=== PATIENT | male | born 1980 | race Caucasian/White ===

== ENCOUNTER 2017-11-16 06:17 | Day surgery (SDC) | payer OTHER ==
[~2017-11-16] VITALS: Ht 182.9 cm; Wt 103.2 kg
[~2017-11-16 06:17] MED LIST: SODIUM CHLORIDE 0.9% 1,000 ML IV ONE
[2017-11-16] MEDS ORDERED: LIDOCAINE HCL 2% 30 ML JELLY TP ONE (06:18)
[2017-11-16] MEDS ORDERED: BENZOCAINE 20% 50 MCG/SPRAY 57 GM TP ONE (06:18)
[2017-11-16] MEDS ORDERED: MIDAZOLAM HCL 2 MG/2 ML VIAL ONE (07:49)
[2017-11-16] MEDS ORDERED: FentaNYL CITRATE-PF 100 MCG/2 ML VIAL ONE (07:49)
[2017-11-16] MEDS ORDERED: MethylPREDNISolone SOD SUCC 125 MG/2 ML VIAL IVP ONE (08:45)
[2017-11-16] MEDS ORDERED: OXYGEN THERAPY IH SCH (20:00)
== END 2017-11-16 10:10 | disposition home or self-care (01) ==
LOC: SURGERY 06:17
PROVIDERS: ATTEND Internal Medicine Critical Care Medicine
DX: J38.4 Edema of larynx (principal); B37.0 Candidal stomatitis; J84.111 Idiopathic interstitial pneumonia, not otherwise specified; E78.00 Pure hypercholesterolemia, unspecified; M19.90 Unspecified osteoarthritis, unspecified site; Z87.891 Personal history of nicotine dependence; Z72.89 Other problems related to lifestyle
CPT/HCPCS: 31623; 31624; 71045; 87015; 87070; 87147; 87205; 87206; 87220; 88108; 88312; 94640; J2250; J2930; J3010; J7030; 87101

== ENCOUNTER 2019-01-08 06:09 | Day surgery (SDC) | payer OTHER ==
[~2019-01-08] VITALS: Ht 175.3 cm; Wt 103.2 kg
[2019-01-08] MEDS ORDERED: LIDOCAINE 4% 50 ML SOLUTION TP ONE (06:10)
[2019-01-08] MEDS ORDERED: BENZOCAINE 20% 50 MCG/SPRAY 57 GM TP ONE (06:10)
[2019-01-08] MEDS ORDERED: LIDOCAINE 2% 30 ML JELLY TP ONE (06:10)
[2019-01-08] MEDS ORDERED: SODIUM CHLORIDE 0.9% 1,000 ML IV ONE (06:30)
[2019-01-08] MEDS ORDERED: MONT10TA21 PO (07:18)
[2019-01-08] MEDS ORDERED: ALBU8.5H8 IH (07:18)
[2019-01-08] MEDS ORDERED: PSEU30TA31 PO (07:18)
[2019-01-08] MEDS ORDERED: DOXY150T PO (07:18)
[2019-01-08] MEDS ORDERED: FLUT16H NASAL (07:18)
[2019-01-08] MEDS ORDERED: GLUC-147 PO (07:18)
[2019-01-08] MEDS ORDERED: P-EP-31 PO (07:18)
[2019-01-08] MEDS ORDERED: CHOL50004 PO (07:18)
[2019-01-08] MEDS ORDERED: OMEP20 PO (07:18)
[2019-01-08] MEDS ORDERED: MIDAZOLAM HCL 2 MG/2 ML VIAL ONE (07:49)
[2019-01-08] MEDS ORDERED: FentaNYL CITRATE-PF 100 MCG/2 ML VIAL ONE (07:49)
[2019-01-08] MEDS ORDERED: MethylPREDNISolone SOD SUCC 125 MG/2 ML VIAL IVP ONE (08:45)
[2019-01-08] MEDS ORDERED: MethylPREDNISolone SOD SUCC 125 MG/2 ML VIAL ONE (08:53)
[2019-01-08] MEDS ORDERED: OXYGEN THERAPY IH SCH (20:00)
== END 2019-01-08 10:15 | disposition home or self-care (01) ==
LOC: SURGERY 06:09
PROVIDERS: ATTEND Internal Medicine Critical Care Medicine
DX: J38.4 Edema of larynx (principal); B37.0 Candidal stomatitis; Z85.118 Personal history of other malignant neoplasm of bronchus and lung
CPT/HCPCS: 31623; 31624; 71045; 87015; 87070; 87101; 87205; 87206; 87220; 88108; 88312; J2250; J2930; J3010; J7030

== ENCOUNTER 2020-09-22 06:15 | Day surgery (SDC) | payer OTHER ==
[2020-09-21 06:44] LABS: COVID AG,FIA SOURCE NASOPHARYNGEAL
[~2020-09-22] VITALS: Ht 182.9 cm; Wt 104.1 kg
[~2020-09-22 06:15] MED LIST changes: +AMOX1TAB16 PO; +DOXY150T5 PO; +FLUT16H NASAL; +MONT-35 PO; +OMEP20 PO; +P-EP-31 PO; +PSEU-220 PO; -SODIUM CHLORIDE 0.9% 1,000 ML IV ONE
[2020-09-22] MEDS ORDERED: SODIUM CHLORIDE 0.9% 1,000 ML IV ONE (06:30)
[2020-09-22] MEDS ORDERED: SODIUM CHLORIDE 0.9% 1,000 ML ONE (07:02)
[2020-09-22] MEDS ORDERED: MIDAZOLAM HCL 2 MG/2 ML VIAL ONE (07:33)
[2020-09-22] MEDS ORDERED: FentaNYL CITRATE PF 100 MCG/2 ML VIAL ONE (07:34)
[2020-09-22] MEDS ORDERED: MethylPREDNISolone SOD SUCC 125 MG/2 ML VIAL IVP ONE (09:00)
[2020-09-22] MEDS ORDERED: MethylPREDNISolone SOD SUCC 125 MG/2 ML VIAL ONE (09:22)
[2020-09-22] MEDS ORDERED: BENZOCAINE 20% 50 MCG/SPRAY 57 GM TP ONE (12:00)
[2020-09-22] MEDS ORDERED: ALBUTEROL SULFATE 2.5 MG/0.5 ML NEB SOLUTION NEB ONE (12:00)
[2020-09-22] MEDS ORDERED: LIDOCAINE 2% 30 ML JELLY TP ONE (12:00)
[2020-09-22] MEDS ORDERED: LIDOCAINE 4% 50 ML SOLUTION TP ONE (12:00)
[2020-09-22] MEDS ORDERED: OXYGEN THERAPY IH SCH (20:00)
== END 2020-09-22 10:25 | disposition home or self-care (01) ==
LOC: SURGERY 06:15
PROVIDERS: ATTEND Internal Medicine Critical Care Medicine
DX: J38.4 Edema of larynx (principal); B37.0 Candidal stomatitis; Z85.118 Personal history of other malignant neoplasm of bronchus and lung; Z79.899 Other long term (current) drug therapy
CPT/HCPCS: 31623; 31624; 71045; 87015; 87070; 87101; 87205; 87206; 87220; 87426; 88108; 88184; 88185; 88312; C9803; J2250; J2930; J3010; J7030; J7613; Z7610

== ENCOUNTER 2021-10-10 06:07 | Day surgery (SDC) | payer OTHER ==
[~2021-10-10] VITALS: Ht 182.9 cm; Wt 104.0 kg
[2021-10-10] MEDS ORDERED: LIDOCAINE 4% 50 ML SOLUTION TP ONE (06:08)
[2021-10-10] MEDS ORDERED: LIDOCAINE 2% 30 ML JELLY TP ONE (06:08)
[2021-10-10] MEDS ORDERED: BENZOCAINE 20% 50 MCG/SPRAY 57 GM TP ONE (06:08)
[2021-10-10] MEDS ORDERED: SODIUM CHLORIDE 0.9% 1,000 ML IV ONE (06:30)
[2021-10-10 06:49] LABS: COVID AG,FIA SOURCE NASOPHARYNGEAL
[2021-10-10] MEDS ORDERED: SODIUM CHLORIDE 0.9% 1,000 ML ONE (07:03)
[2021-10-10] MEDS ORDERED: FentaNYL CITRATE PF 100 MCG/2 ML VIAL ONE (07:26)
[2021-10-10] MEDS ORDERED: MIDAZOLAM HCL 5 MG/ML VIAL ONE (07:26)
[2021-10-10] MEDS ORDERED: MethylPREDNISolone SOD SUCC 125 MG/2 ML VIAL IVP ONE (09:00)
[2021-10-10] MEDS ORDERED: MethylPREDNISolone SOD SUCC 125 MG/2 ML VIAL ONE (09:10)
== END 2021-10-10 11:00 | disposition home or self-care (01) ==
LOC: SURGERY 06:07
PROVIDERS: ATTEND Internal Medicine Critical Care Medicine
DX: J38.4 Edema of larynx (principal); B37.0 Candidal stomatitis; Z98.890 Other specified postprocedural states; Z72.89 Other problems related to lifestyle; F17.210 Nicotine dependence, cigarettes, uncomplicated; Z79.899 Other long term (current) drug therapy
CPT/HCPCS: 31623; 31624; 71045; 87015; 87070; 87101; 87206; 87220; 87426; 88112; 88184; 88185; 88305; 88312; C9803; J2250; J2930; J3010; J7030; Z7610

== ENCOUNTER 2023-02-14 07:12 | Day surgery (SDC) | payer OTHER ==
[~2023-02-14] VITALS: Ht 182.9 cm; Wt 97.7 kg
[~2023-02-14 07:12] MED LIST changes: -FLUT16H NASAL; +FLUT16SP NASAL; -P-EP-31 PO; +SODIUM CHLORIDE 0.9% 1,000 ML IV ONE; +TRIP1TAB14 PO
[2023-02-14] MEDS ORDERED: BENZOCAINE 20% 50 MCG/SPRAY 57 GM TP ONE (07:13)
[2023-02-14] MEDS ORDERED: LIDOCAINE 4% 50 ML SOLUTION TP ONE (07:13)
[2023-02-14] MEDS ORDERED: ALBUTEROL SULFATE 2.5 MG/0.5 ML NEB SOLUTION NEB ONE (07:13)
[2023-02-14] MEDS ORDERED: LIDOCAINE 2% 11 ML JELLY TP ONE (07:13)
[2023-02-14] MEDS ORDERED: SODIUM CHLORIDE 0.9% 1,000 ML ONE (07:32)
[2023-02-14] MEDS ORDERED: MIDAZOLAM HCL 2 MG/2 ML VIAL ONE (07:51)
[2023-02-14] MEDS ORDERED: FentaNYL CITRATE PF 100 MCG/2 ML VIAL ONE (07:52)
[2023-02-14] MEDS ORDERED: MethylPREDNISolone SOD SUCC 125 MG/2 ML VIAL IVP ONE (09:15)
[2023-02-14 09:31] VITALS: PULSE 52; RESP 12; O2SAT 100
[2023-02-14] MEDS ORDERED: MethylPREDNISolone SOD SUCC 125 MG/2 ML VIAL ONE (09:58)
== END 2023-02-14 11:20 | disposition home or self-care (01) ==
LOC: SURGERY 07:12
PROVIDERS: ATTEND Internal Medicine Critical Care Medicine
DX: R91.1 Solitary pulmonary nodule (principal); R05.3 Chronic cough; J47.9 Bronchiectasis, uncomplicated
CPT/HCPCS: 87206; 87101; 87220; 87070; 31623; 31624; 94640; 71045; 87015; J3010; J2250; J2930; Q9967; J7030; J7613; Z7610